=== PATIENT | male | born 1975 | race Caucasian/White ===

== ENCOUNTER 2017-07-14 15:03 | Emergency (ER) | payer SELFPAY ==
[2017-07-14] MEDS: ACETAMINOPHEN/CODEINE 300/30MG TABLET. PO (16:15)
[2017-07-14] MEDS: DIPHTH,PERTUSS(ACELL),TET TOX 0.5 ML DISP.SYRIN. VAX IM (16:17)
== END 2017-07-14 17:10 | disposition home or self-care (01) ==
LOC: ER 15:03
DX: S91.132A Puncture wound without foreign body of left great toe without damage to nail, initial encounter (principal); W45.0XXA Nail entering through skin, initial encounter; Y93.89 Activity, other specified; Y92.89 Other specified places as the place of occurrence of the external cause; Y99.8 Other external cause status
CPT/HCPCS: 73630; 90471; 90715; 99284-25